=== PATIENT | female | born 2000 | race Caucasian/White ===

== ENCOUNTER 2019-04-05 17:11 | Emergency (ER) | payer OTHER, SELFPAY ==
[2019-04-05 18:41] LABS: Urine Blood NEGATIVE (NEG); Urine Glucose NEGATIVE (NEG); Urine Protein NEGATIVE (NEG); Urine Specific Gravity 1.025 (1.005-1.030); Urine pH 5.5 (5.0-7.0)
[2019-04-05] MEDS ORDERED: NA CHLORIDE 0.9% 0 ML ONE (19:34)
--- NOTE | 2019-04-05 20:29 | RAD REPORT ---
EXAM DESCRIPTION: US - Transvaginal OB - 04/05/2019 8:18 pm CLINICAL HISTORY: ABD CRAMPING, COMPARISON: <Comparisons> FINDINGS: Small cystic structure, likely an early gestational sac, is seen in the fundal endometrium with mean sac diameter 4 mm, corresponding to 5 weeks 0 days gestational age. The shape of the sac i s within normal limits for gestational age. No yolk sac or embryo yet seen. The maternal adnexa and ovaries are within normal limits. Normal Doppler blood flow was demonstrated to both ovaries. IMPRESSION: Early IUP findings are noted without embryo or yolk sac yet identified. Suggest followup pelvic sonography 10-12 days.
[2019-04-05 21:17] LABS: Absolute Lymphocytes (CBC) 2.9 K/uL (0.7-4.9); Absolute Monocytes 0.5 K/uL (0.1-1.3); Absolute Neutrophil 4.6 K/uL (1.8-8.0); Basophils % 0.9 % (0-1.3); Eosinophils % 2.3 % (0-4.4); Hematocrit 37.7 % (36.0-45.0); Lymphocytes % 34.8 % (15.3-44.8); MPV 6.9 fL (7.6-11.3); RBC Red Blood Cell Count 4.29 M/uL (3.86-4.86)
[2019-04-05 21:27] LABS: BUN Blood Urea Nitrogen 11 mg/dL (7-18); Bicarbonate 25 mmol/L (21-32); Glucose Level 104 mg/dL (74-106); Potassium 3.7 mmol/L (3.5-5.1); Sodium Level 141 mmol/L (136-145)
--- NOTE | 2019-04-05 21:56 | ER ---
Nurse's Notes [facility] Name: Mar Dominique Age: 18 yrs Sex: Female : 2000 Arrival Date: 04/05/2019 Time: 17:14 Bed 15 Private MD: Diagnosis: Threatened ; related conditions, unspecified, first trimester Presentation: 04/05 17:34 Presenting complaint: Patient states: AROUND 0300 I BLED VAGINALLY, THEN STOPPED, BUT I ch AM HAVING PAIN IN MY LOWER ABDOMEN AND PELVIS. I MIGHT BE . I HAVE A 6 MONTH OLD BABY, NOT BREAST FEEDING. VOMITING FOR 1 WEEK, HEADACHES FOR A WEEK. Transition of care: patient was not received from another setting of care. Onset of symptoms was April 05, 2019 at 03:00. Risk Assessment: Do you want to hurt yourself or someone else? Patient reports no desire to harm self or others. Initial Sepsis Screen: Does the patient meet any 2 criteria? No. Patient's initial sepsis screen is negative. Does the patient have a suspected source of infection? No. Patient's initial sepsis screen is negative. Care prior to arrival: None. 17:34 Method Of Arrival: Ambulatory 17:34 Acuity: VICKY 3 ch Triage Assessment: 17:36 General: Appears in no apparent distress. comfortable, Behavior is calm, cooperative, ch appropriate for age. Pain: Complains of pain in suprapubic area, right lower quadrant, left lower quadrant and pelvis Pain currently is 7 out of 10 on a pain scale. GI: Reports lower abdominal pain, nausea, vomiting. 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 - Social history:: Smoking status: Patient/guardian denies using tobacco, Patient/guardian denies using alcohol, street drugs. - Ebola Screening: : Patient negative for fever greater than or equal to 101.5 degrees Fahrenheit, and additional compatible Ebola Virus Disease symptoms Patient denies exposure to infectious person Patient denies travel to an Ebola-affected area in the 21 days before illness onset No symptoms or risks identified at this time. Screenin:00 Abuse screen: Denies threats or abuse. Nutritional screening: No deficits noted. jb4 Tuberculosis screening: No symptoms or risk factors identified. Fall Risk None identified. Assessment: 19:15 General: Appears in no apparent distress. uncomfortable, Behavior is calm, cooperative, jb4 appropriate for age. Pain: Complains of pain in abdomen Pain does not radiate. Pain currently is 8 out of 10 on a pain scale. Neuro: Level of Consciousness is awake, alert, obeys commands, Oriented to person, place, time, situation. Cardiovascular: Patient's skin is warm and dry. Respiratory: Airway is patent Respiratory effort is even, unlabored, Respiratory pattern is regular, symmetrical. GI: Bowel sounds present X 4 quads. Abd is soft X 4 quads Abd is non tender in right upper quadrant and left upper quadrant Abdomen is tender to palpation in suprapubic area, right lower quadrant and left lower quadrant. : No signs and/or symptoms were reported regarding the genitourinary system. EENT: No signs and/or symptoms were reported regarding the EENT system. Derm: Skin is intact, Skin is pink, warm \T\ dry. Musculoskeletal: Circulation, motion, and sensation intact. 20:00 Reassessment: Patient appears in no apparent distress at this time. Patient and/or jb4 family updated on plan of care and expected duration. Pain level reassessed. Patient is alert, oriented x 3, equal unlabored respirations, skin warm/dry/pink. Pt refused further IV attempts. 20:55 Reassessment: pt refused further blood draw attempts from Lab. jb4 21:00 Reassessment: Patient appears in no apparent distress at this time. Patient and/or jb4 family updated on plan of care and expected duration. Pain level reassessed. Patient is alert, oriented x 3, equal unlabored respirations, skin warm/dry/pink. 22:08 Reassessment: Patient appears in no apparent distress at this time. Patient is alert, jb4 oriented x 3, equal unlabored respirations, skin warm/dry/pink. Pt left ED ambulatory with friend, steady gait. Verbalized understanding of d/c and follow up instructions, denies questions or concerns at this time. Vital Signs: 17:36 BP 152 / 81; Pulse 80; Resp 16; Temp 98.6; Pulse Ox 99% on R/A; Weight 92.99 kg; Height 5 ft. 8 in. (172.72 cm); Pain 8/10; 19:45 BP 115 / 76; Pulse 80; Resp 18; Pulse Ox 100% on R/A; jb4 21:41 BP 118 / 79; Pulse 69; Resp 16; Pulse Ox 100% on R/A; jb4 17:36 Body Mass Index 31.17 (92.99 kg, 172.72 cm) ED Course: 17:14 Patient arrived in ED. rg4 17:35 Triage completed. 17:36 Arm band placed on left wrist. Patient placed in waiting room. ch 18:25 Derrek Gomez, IGNACIO is Primary Nurse. sg 18:51 Rakesh Calvillo MD is Attending Physician. shan 19:00 Patient has correct armband on for positive identification. Bed in low position. Call jb4 light in reach. Side rails up X 1. Pulse ox on. NIBP on. 19:14 Rakesh Bailey PA is PHCP. cp 20:00 Missed attempt(s): 20 gauge in right antecubital area. jb4 20:20 US Transvaginal Ob In Process Unspecified. EDMS 21:05 Initial lab(s) drawn, by me, sent to lab. Inserted saline lock: 20 gauge in right rr5 forearm, using aseptic technique. Blood collected. 21:54 Akil Monroe MD is Referral Physician. cp 21:55 Referral Physician role handed off by Akil Monroe MD cp 21:55 Akil Monroe MD is Referral Physician. cp 22:08 No provider procedures requiring assistance completed. IV discontinued, intact, jb4 bleeding controlled, No redness/swelling at site. Pressure dressing applied. Administered Medications: 19:30 Not Given (Patient Refused): NS 0.9% 1000 ml IV at 1 bolus Per protocol; 1000 mL bolus jb4 Outcome: 21:55 Discharge ordered by . cp 22:10 Discharged to home ambulatory, with friend. jb4 22:10 Condition: stable 22:10 Discharge instructions given to patient, friend, Instructed on discharge instructions, follow up and referral plans. medication usage, Demonstrated understanding of instructions, follow-up care, medications, Prescriptions given X 2. 22:10 Patient left the ED. jb4 Signatures: Dispatcher [employer] EDMS Umu Alba, RN RN Derrek Brink RN Rakesh Martinez MD MD cha Page, Corey, PA Jessica Gould cp rg4 Giuliano Mallory RN RN jb4 Sheng Resendiz RN RN rr5 Corrections: (The following items were deleted from the chart) 22:10 22:08 Reassessment: Patient appears in no apparent distress at this time. Patient is jb4 alert, oriented x 3, equal unlabored respirations, skin warm/dry/pink. Pt left ED ambulatory with friend, steady gait. jb4
--- NOTE | 2019-04-05 21:56 | EDPHYS ---
Physician Documentation [facility] Name: Mar Dominique Age: 18 yrs Sex: Female : 2000 Arrival Date: 04/05/2019 Time: 17:14 Bed 15 Private MD: ED Physician Rakesh Calvillo HPI: 04/05 18:55 This 18 yrs old Female presents to ER via Ambulatory with complaints of shan Abdominal Cramping. 18:55 The patient presents to the emergency department with abdominal pain, of the suprapubic shan area, right lower quadrant and left lower quadrant, vaginal bleeding. The estimated gestational age is 4 weeks. course: care: none. Previous pregnancies: in previous pregnancies patient has had vaginal delivery. 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 - Social history:: Smoking status: Patient/guardian denies using tobacco, Patient/guardian denies using alcohol, street drugs. - Ebola Screening: : Patient negative for fever greater than or equal to 101.5 degrees Fahrenheit, and additional compatible Ebola Virus Disease symptoms Patient denies exposure to infectious person Patient denies travel to an Ebola-affected area in the 21 days before illness onset No symptoms or risks identified at this time. ROS: 18:56 Constitutional: Negative for fever, chills, and weight loss, Eyes: Negative for injury, shan pain, redness, and discharge, ENT: Negative for injury, pain, and discharge, Neck: Negative for injury, pain, and swelling, Cardiovascular: Negative for chest pain, palpitations, and edema, Respiratory: Negative for shortness of breath, cough, wheezing, and pleuritic chest pain, Back: Negative for injury and pain, : Negative for injury, bleeding, discharge, and swelling, MS/Extremity: Negative for injury and deformity, Skin: Negative for injury, rash, and discoloration, Neuro: Negative for headache, weakness, numbness, tingling, and seizure, Psych: Negative for depression, anxiety, suicide ideation, homicidal ideation, and hallucinations, Allergy/Immunology: Negative for hives, rash, and allergies, Endocrine: Negative for neck swelling, polydipsia, polyuria, polyphagia, and marked weight changes, Hematologic/Lymphatic: Negative for swollen nodes, abnormal bleeding, and unusual bruising. 18:56 Abdomen/GI: Positive for abdominal pain, abdominal cramps, of the suprapubic area, right lower quadrant and left lower quadrant. Exam: 18:56 Constitutional: This is a well developed, well nourished patient who is awake, alert, shan and in no acute distress. Head/Face: Normocephalic, atraumatic. Eyes: Pupils equal round and reactive to light, extra-ocular motions intact. Lids and lashes normal. Conjunctiva and sclera are non-icteric and not injected. Cornea within normal limits. Periorbital areas with no swelling, redness, or edema. ENT: Nares patent. No nasal discharge, no septal abnormalities noted. Tympanic membranes are normal and external auditory canals are clear. Oropharynx with no redness, swelling, or masses, exudates, or evidence of obstruction, uvula midline. Mucous membranes moist. Neck: Trachea midline, no thyromegaly or masses palpated, and no cervical lymphadenopathy. Supple, full range of motion without nuchal rigidity, or vertebral point tenderness. No Meningismus. Chest/axilla: Normal chest wall appearance and motion. Nontender with no deformity. No lesions are appreciated. Cardiovascular: Regular rate and rhythm with a normal S1 and S2. No gallops, murmurs, or rubs. Normal PMI, no JVD. No pulse deficits. Respiratory: Lungs have equal breath sounds bilaterally, clear to auscultation and percussion. No rales, rhonchi or wheezes noted. No increased work of breathing, no retractions or nasal flaring. Back: No spinal tenderness. No costovertebral tenderness. Full range of motion. Female : Normal external genitalia. Skin: Warm, dry with normal turgor. Normal color with no rashes, no lesions, and no evidence of cellulitis. MS/ Extremity: Pulses equal, no cyanosis. Neurovascular intact. Full, normal range of motion. Neuro: Awake and alert, GCS 15, oriented to person, place, time, and situation. Cranial nerves II-XII grossly intact. Motor strength 5/5 in all extremities. Sensory grossly intact. Cerebellar exam normal. Normal gait. Psych: Awake, alert, with orientation to person, place and time. Behavior, mood, and affect are within normal limits. 18:56 Abdomen/GI: Inspection: abdomen appears normal, Bowel sounds: normal, Liver: no appreciated palpable abnormalities, Hernia: not appreciated. Vital Signs: 17:36 BP 152 / 81; Pulse 80; Resp 16; Temp 98.6; Pulse Ox 99% on R/A; Weight 92.99 kg; Height ch 5 ft. 8 in. (172.72 cm); Pain 8/10; 19:45 BP 115 / 76; Pulse 80; Resp 18; Pulse Ox 100% on R/A; jb4 21:41 BP 118 / 79; Pulse 69; Resp 16; Pulse Ox 100% on R/A; jb4 17:36 Body Mass Index 31.17 (92.99 kg, 172.72 cm) [facility]: 18:51 Patient medically screened. [facility] 18:57 Data reviewed: vital signs, nurses notes, lab test result(s), radiologic studies, [facility] ultrasound. 04/05 18:28 Order name: Urine Dipstick--Ancillary (enter results); Complete Time: 18:51 ms 04/05 18:28 Order name: Urine --Ancillary (enter results); Complete Time: 18:51 ia 04/05 21:45 Interpretation: Reviewed. 04/05 18:55 Order name: Abo/rh Typing; Complete Time: 21:54 [facility] 04/05 21:54 Interpretation: Reviewed. 04/05 18:55 Order name: Basic Metabolic Panel; Complete Time: 21:44 [facility] 04/05 21:44 Interpretation: Normal except: CL 109. 04/05 18:55 Order name: CBC with Diff; Complete Time: 21:44 [facility] 04/05 21:44 Interpretation: Normal except: MPV 6.9. 04/05 19:57 Order name: Quantitative Hcg; Complete Time: 21:54 04/05 21:54 Interpretation: Abnormal: HCGQ 1785. 04/05 18:55 Order name: Labs collected and sent; Complete Time: 19:30 [facility] 04/05 18:55 Order name: NPO; Complete Time: 19:30 [facility] 04/05 18:55 Order name: Urine Dipstick-Ancillary (obtain specimen); Complete Time: 19:30 [facility] 04/05 18:55 Order name: US Transvaginal Ob; Complete Time: 20:33 [facility] Administered Medications: 19:30 Not Given (Patient Refused): NS 0.9% 1000 ml IV at 1 bolus Per protocol; 1000 mL bolus jb4 Disposition: 04/05/19 21:55 Discharged to Home. Impression: Threatened , related conditions, unspecified, first trimester. - Condition is Stable. - Discharge Instructions: Threatened Miscarriage, Vaginal Bleeding During , First Trimester, First Trimester of , [id number], First Trimester of , Threatened Miscarriage, [id number], Pelvic Rest. - Prescriptions for Vitamin 27- 0.8 mg Oral Tablet - take 1 tablet by ORAL route once daily; 30 tablet. Diclegis 10- 10 mg Oral tablet,delayed release (DR/EC) - take 1 tablet by ORAL route 3 times per day and 2 tablets at bedtime; 60 tablet. - Medication Reconciliation Form, Thank You Letter, Antibiotic Education, Prescription Opioid Use form. - Follow up: Akil Monroe; When: 2 - 3 days; Reason: Recheck today's complaints, Re-evaluation by your physician. Follow up: Akil Monroe MD; When: 48 Hours; Reason: Repeat Beta-HCG (48 Hours). Follow up: Private Physician; When: 48 Hours; Reason: Repeat Beta-HCG (48 Hours). - Problem is new. - Symptoms have improved. Signatures: Dispatcher [employer] Umu Grier, RN RN Rakesh Timmons MD MD cha Page, Corey, PA PA cp Bryson, James, RN RN jb4 Corrections: (The following items were deleted from the chart) 19:30 18:55 IV Saline Lock ordered. [facility] jb4 22:10 21:55 04/05/2019 21:55 Discharged to Home. Impression: Threatened ; jb4 related conditions, unspecified, first trimester. Condition is Stable. Discharge Instructions: Threatened Miscarriage, Vaginal Bleeding During , First Trimester, First Trimester of , [id number], First Trimester of , Threatened Miscarriage, [id number], Pelvic Rest. Prescriptions for Vitamin 27-0.8 mg Oral Tablet - take 1 tablet by ORAL route once daily; 30 tablet, Diclegis 10-10 mg Oral tablet,delayed release (DR/EC) - take 1 tablet by ORAL route 3 times per day and 2 tablets at bedtime; 60 tablet. and Forms are Medication Reconciliation Form, Thank You Letter, Antibiotic Education, Prescription Opioid Use. Follow up: Akil Monroe; When: 48 Hours; Reason: Repeat Beta-HCG (48 Hours). Follow up: Private Physician; When: 48 Hours; Reason: Repeat Beta-HCG (48 Hours). Problem is new. Symptoms have improved. cp
== END 2019-04-05 22:10 | disposition home or self-care (01) ==
LOC: ER 17:11
DX: O20.0 Threatened abortion (principal); Z3A.01 Less than 8 weeks gestation of pregnancy
CPT/HCPCS: 36415; 76817; 80048; 81003; 81025; 84702; 85025; 86900; 86901; 99284; J7030

== ENCOUNTER 2019-04-07 20:06 | Emergency (ER) | payer SELFPAY ==
--- OUTSIDE RECORDS SUMMARY | 2019-04-07 20:11 | XMS REPORT | Continuity of Care Document ---
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 Hg) 119 02/22/2018 [facility] Diastolic (mm Hg) 76 02/22/2018 [facility] Respitory Rate 18 02/22/2018 [facility] Heart Rate 66 02/22/2018 [facility] Systolic (mm Hg) 113 02/22/2018 [facility] Diastolic (mm Hg) 74 02/22/2018 [facility] Weight 93.182 02/22/2018 [facility] Height 170.18 cm 02/22/2018 [facility] BMI Calculated 32.17 02/22/2018 [facility] Heart Rate 80 01/25/2018 [facility] Respitory Rate 17 01/25/2018 [facility] Systolic (mm Hg) 126 01/25/2018 [facility] Diastolic (mm Hg) 78 01/25/2018 [facility] Heart Rate 88 01/25/2018 [facility] Respitory Rate 18 01/25/2018 [facility] Systolic (mm Hg) 123 01/25/2018 [facility] Diastolic (mm Hg) 100 01/25/2018 [facility] Systolic (mm Hg) 113 01/25/2018 [facility] Diastolic (mm Hg) 67 01/25/2018 [facility] Weight 92.727 01/25/2018 [facility] BMI Calculated 32.02 01/25/2018 [facility] Height 170.18 cm 01/25/2018 [facility] Temperature Oral (F) 98.3 F 01/25/2018 [facility] Heart Rate 77 01/25/2018 [facility] Respitory Rate 17 01/25/2018 [facility] Systolic (mm Hg) 115 12/31/2017 [facility] Diastolic (mm Hg) 76 12/31/2017 [facility] Respitory Rate 18 12/31/2017 [facility] Heart Rate 89 12/31/2017 [facility] Systolic (mm Hg) 116 12/31/2017 [facility] Diastolic (mm Hg) 79 12/31/2017 [facility] Respitory Rate 19 12/31/2017 [facility] Heart Rate 98 12/31/2017 [facility] BMI Calculated 32.96 12/31/2017 [facility] Weight 95.455 12/31/2017 [facility] Respitory Rate 17 12/31/2017 [facility] Heart Rate 101 12/31/2017 [facility] Systolic (mm Hg) 142 12/31/2017 [facility] Diastolic (mm Hg) 68 12/31/2017 [facility] Height 170.18 cm 12/31/2017 [facility] Temperature Oral (F) 98.3 F 12/31/2017 [facility] Weight 81.818 04/08/2017 [facility] BMI Calculated 28.25 04/08/2017 [facility] Temperature Oral (F) 98.2 F 04/08/2017 [facility] Respitory Rate 16 04/08/2017 [facility] Height 170.18 cm 04/08/2017 [facility] Systolic (mm Hg) 112 04/08/2017 [facility] Diastolic (mm Hg) 70 04/08/2017 [facility] Heart Rate 97 04/08/2017 [facility] Respitory Rate 18 04/09/2016 [facility] BMI Calculated 25.56 04/09/2016 [facility] Height 167.64 cm 04/09/2016 [facility] Weight 71.818 04/09/2016 [facility] Temperature Oral (F) 98.0 F 04/09/2016 [facility] Heart Rate 88 04/09/2016 [facility] Systolic (mm Hg) 111 04/09/2016 [facility] Diastolic (mm Hg) 75 04/09/2016 [facility] Encounters Location Location Encounter Encounter Reason Attending ADM DC Status Source Details Type Number For Provider Date Date Visit [facility] [id number] Christopher 04/09 04/09 Rob Emergency [place] /2015 [facility] [id number] [place] 04/08 04/08 Rob Diamond /2016 [facility] [id number] Ejieroghene 12/31 12/31 Rob Brown [facility] [id number] Andrew Narayanan 01/25 01/25 Rob [facility] [id number] Seamus Payan 02/22 02/22 Rob /2017 [facility] [id number] Danyricky Jacobs 05/09 05/10 Rob [facility] [id number] Juan J 08/28 08/28 Rob Davila [facility] Procedures Procedure Code Date Perfomer Comments Source Cholecystectomy [id number] [facility] Cholecystectomy [id number] [facility]
--- OUTSIDE RECORDS SUMMARY | 2019-04-07 20:12 | XMS REPORT | Summary of Care ---
:2000 Author Organization [facility] Address [address] [place] [address]- Encounter [facility] Yeu(MIGEL) [id number] Date(s): 01/25/18 - 01/25/[address] [address]- Encounter Diagnosis PID (acute pelvic inflammatory disease) (Discharge Diagnosis) - 01/25/18 Acute parametritis and pelvic cellulitis (Final) - 02/01/18 Discharge Disposition: Home or Self Care Attending Physician: Andrew Narayanan MD Vital Signs Most recent to oldest 1 2 3 [Reference Range]: Height 170.18 cm (01/25/18 10:27 AM) Temperature Oral [96.4-99.1 98.3 DegF DegF] (01/25/18 10:27 AM) Blood Pressure [90-140/60-90 126/78 mmHg 123/100 mmHg 113/67 mmHg mmHg] (01/25/18 1:00 PM) (01/25/18 11:50 AM) (01/25/18 10:27 AM) Respiratory Rate [14-20 BRMIN] 17 BRMIN 18 BRMIN 17 BRMIN (01/25/18 1:00 PM) (01/25/18 11:50 AM) (01/25/18 10:27 AM) Peripheral Pulse Rate [60-100 80 bpm 88 bpm 77 bpm bpm] (01/25/18 1:00 PM) (01/25/18 11:50 AM) (01/25/18 10:27 AM) Weight 92.727 kg (01/25/18 10:27 AM) Body Mass Index 32.02 m2 (01/25/18 10:27 AM) Problem List No data available for this section Allergies, Adverse Reactions, Alerts Substance Reaction Severity Status NKDA Active Medications azithromycin 250 mg oral tablet 1,000 mg, 4 tab, Route: PO, Drug form: TAB, ONCE, Dosing Weight 92.727, kg, Priority: STAT, Start date: 01/25/18 11:02:00 CDT, Stop date: 01/25/18 11:02:00 CDT, ABX Indication: Genital Tract Infection Notes: Take 1 hour before or 2 hours after meals.(Same As: Zithromax) Start Date: 01/25/18 Stop Date: 01/25/18 Status: Completeddoxycycline hyclate 100 mg oral tablet 100 mg=1 tab, PO, Q12H, X 14 day, # 28 tab, 0 Refill(s) Start Date: 01/25/18 Stop Date: 02/08/18 Status: CompletedmetroNIDAZOLE 2 gm, Route: PO, ONCE, Dosing Weight 92.727, kg, Priority: STAT, Start date: 02/08 11:02:00 CDT, Stop date: 01/25/18 11:02:00 CDT, ABX Indication: Genital Tract Infection Start Date: 01/25/18 Stop Date: 01/25/18 Status: Completedondansetron 4 mg, Route: PO, Drug form: TABDIS, ONCE, Dosing Weight 92.727, kg, Priority: STAT, Start date: 01/25/18 11:02:00 CDT, Stop date: 01/25/18 11:02:00 CDT Start Date: 01/25/18 Stop Date: 01/25/18 Status: CompletedRocephin 250 mg, Route: IM, Drug form: PDR/INJ, ONCE, Dosing Weight 92.727, kg, Priority : STAT, Start date: 01/25/18 11:02:00 CDT, Stop date: 01/25/18 11:02:00 CDT, ABX Indication: Genital Tract Infection Start Date: 01/25/18 Stop Date: 01/25/18 Status: Completed Results URINE CHEM Most recent to oldest [Reference Range]: 1 U Preg [Negative] Negative (01/25/18 10:48 AM) URINE AND STOOL Most recent to oldest [Reference Range]: 1 UA Turbidity [Clear] Slight *ABN* (01/25/18 10:48 AM) UA Color [Yellow] Light Yellow *NA* (01/25/18 10:48 AM) UA pH [5.0-8.0] 6.0 (01/25/18 10:48 AM) UA Spec Grav [<=1.030] 1.014 (01/25/18 10:48 AM) UA Glucose [Negative mg/dL] Negative mg/dL *NA* (01/25/18 10:48 AM) UA Blood [Negative] Negative (01/25/18 10:48 AM) UA Ketones Negative *NA* (01/25/18 10:48 AM) UA Protein [Negative mg/dL] Negative mg/dL (01/25/18 10:48 AM) UA Urobilinogen [0.1-1.0 mg/dL] <=1.0 mg/dL *NA* (01/25/18 10:48 AM) UA Bili [Negative] Negative *NA* (01/25/18 10:48 AM) UA Leuk Est [Negative] Small *ABN* (01/25/18 10:48 AM) UA Nitrite [Negative] Negative (01/25/18 10:48 AM) UA WBC [0-5 /HPF] 4 /HPF (01/25/18 10:48 AM) UA RBC [0-2 /HPF] 3 /HPF *HI* (01/25/18 10:48 AM) UA Sq Epi [Few /LPF] Moderate /LPF *ABN* (01/25/18 10:48 AM) UA Mucus [None Seen /LPF] Few /LPF *NA* (01/25/18 10:48 AM) MOLECULAR DIAGNOSTIC Most recent to oldest [Reference Range]: 1 Source [facility] Urine *NA* (01/25/18 10:48 AM) N gonorrhea by Amp Det ([facility]) [Negative] Negative *NA* (01/25/18 10:48 AM) C trachomatis by Amp Det ([facility]) [Negative] Negative *NA* (01/25/18 10:48 AM) Immunizations No data available for this section Procedures Procedure Date Related Diagnosis Body Site Status Cholecystectomy Completed Social History Social History Type Response Substance Abuse Use: Past. Type: Marijuana. Smoking Status Never smoker; Exposure to Tobacco Smoke None; Cigarette Smoking Last 365 Days No; Reg Smoking Cessation Counseling No entered on: 02/22/18 Assessment and Plan No data available for this section
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
--- OUTSIDE RECORDS SUMMARY | 2019-04-07 20:12 | XMS REPORT | Summary of Care ---
:2000 Author Organization [facility] Address [address] [place] [address]- Encounter HQ Encntr_sravan(FIN) [id number] Date(s): 04/08/17 - 04/08/17 [facility] [address] [place] [phone]- [phone] Discharge Disposition: Elopement Attending Physician: Trenton Diamond MD Vital Signs Most recent to oldest [Reference Range]: 1 Height 170.18 cm (04/08/17 4:51 PM) Temperature Oral [96.8-99.7 DegF] 98.2 DegF (04/08/17 4:51 PM) Blood Pressure [90-138/45-84 mmHg] 112/70 mmHg (04/08/17 4:51 PM) Respiratory Rate [14-20 BRMIN] 16 BRMIN (04/08/17 4:51 PM) Peripheral Pulse Rate [55-90 bpm] 97 bpm *HI* (04/08/17 4:51 PM) Weight 81.818 kg (04/08/17 4:51 PM) Body Mass Index 28.25 m2 (04/08/17 4:51 PM) Problem List No data available for this section Allergies, Adverse Reactions, Alerts Substance Reaction Severity Status NKDA Active Medications No data available for this section Results No data available for this section Immunizations No data available for this section Procedures Procedure Date Related Diagnosis Body Site Cholecystectomy Social History Social History Type Response Smoking Status Never smoker; Exposure to Tobacco Smoke None; Cigarette Smoking Last 365 Days No; Reg Smoking Cessation Counseling No Assessment and Plan No data available for this section
--- OUTSIDE RECORDS SUMMARY | 2019-04-07 20:12 | XMS REPORT | Summary of Care ---
:2000 Author Organization [facility] Address [address] [place] [address]- Encounter HQ Yue(FIN) [id number] Date(s): 08/28/18 - 08/28/[address] [address]- Encounter Diagnosis IUGR (intrauterine growth restriction) affecting care of mother (Discharge Diagnosis) - 08/28/18 Maternal care for other known or suspected poor growth, third trimester, not applicable or unspecified (Final) - 09/01/18 34 weeks gestation of (Final) - Discharge Disposition: Home or Self Care Attending Physician: Juan J Davila MD Vital Signs Most recent to oldest [Reference Range]: 1 Height 170.18 cm (08/28/18 4:38 PM) Temperature Oral [96.4-99.1 DegF] 99.2 DegF *HI* (08/28/18 4:38 PM) Blood Pressure [90-140/60-90 mmHg] 109/75 mmHg (08/28/18 4:38 PM) Respiratory Rate [14-20 BRMIN] 18 BRMIN (08/28/18 4:38 PM) Peripheral Pulse Rate [60-100 bpm] 94 bpm (08/28/18 4:38 PM) Weight 102.455 kg (08/28/18 4:38 PM) Body Mass Index 35.38 m2 (08/28/18 4:38 PM) Problem List Condition Effective Dates Status Health Status Informant Anemia affecting Resolved (Confirmed) (Confirmed) 09/19/18 Active Allergies, Adverse Reactions, Alerts No Known Medication Allergies Substance Reaction Severity Status Other Food Allergy1, 2 Active Bee Sting3 Active 1reaction : anaphylactic [id number] to bees-anaphylactic shock Medications No data available for this section Results Most recent to oldest [Reference Range]: 1 UA Bacteria [None Seen /HPF] Few /HPF *NA* (08/28/18 4:29 PM) UA Bili [Negative] Negative *NA* (08/28/18 4:29 PM) UA Blood [Negative] Negative (08/28/18 4:29 PM) UA CaOx Aysha [None Seen /HPF] Occasional /HPF *NA* (08/28/18 4:29 PM) UA Color [Yellow] Yellow *NA* (08/28/18 4:29 PM) UA Glucose [Negative] Negative *NA* (08/28/18 4:29 PM) UA Ketones Negative *NA* (08/28/18 4:29 PM) UA Leuk Est [Negative] Trace *ABN* (08/28/18 4:29 PM) UA Mucus [None Seen /LPF] Few /LPF *NA* (08/28/18 4:29 PM) UA Nitrite [Negative] Negative (08/28/18 4:29 PM) UA pH [5.0-8.0] 6.0 (08/28/18 4:29 PM) UA Protein [Negative] Negative (08/28/18 4:29 PM) UA RBC [0-2 /HPF] 1 /HPF (08/28/18 4:29 PM) UA Spec Grav [<=1.030] 1.011 (08/28/18 4:29 PM) UA Sq Epi [Few /LPF] Moderate /LPF *ABN* (08/28/18 4:29 PM) UA Turbidity [Clear] Slight *ABN* (08/28/18 4:29 PM) UA Urobilinogen [0.1-1.0 mg/dL] <=1.0 mg/dL *NA* (08/28/18 4:29 PM) UA WBC [0-5 /HPF] 5 /HPF (08/28/18 4:29 PM) Immunizations Given and Recorded Vaccine Date [...]
--- OUTSIDE RECORDS SUMMARY | 2019-04-07 20:12 | XMS REPORT | Summary of Care ---
:2000 Author Organization [facility] Address [address] [place] [address]- Encounter HQ Yue(MIGEL) [id number] Date(s): 02/22/18 - 02/22/[address] [address]- Encounter Diagnosis Threatened miscarriage (Discharge Diagnosis) - 02/22/18 Subchorionic hemorrhage (Discharge Diagnosis) - 02/22/18 Threatened (Final) - Less than 8 weeks gestation of (Final) - Discharge Disposition: Home or Self Care Attending Physician: Seamus Payan MD Vital Signs Most recent to oldest [Reference 1 2 3 Range]: Height 170.18 cm (02/22/18 12:52 PM) Blood Pressure [90-140/60-90 111/67 mmHg 119/76 mmHg 113/74 mmHg mmHg] (02/22/18 6:13 PM) (02/22/18 3:22 PM) (02/22/18 1:54 PM) Respiratory Rate [14-20 BRMIN] 17 BRMIN 16 BRMIN 18 BRMIN (02/22/18 6:13 PM) (02/22/18 3:22 PM) (02/22/18 1:54 PM) Peripheral Pulse Rate [60-100 79 bpm 70 bpm 66 bpm bpm] (02/22/18 6:13 PM) (02/22/18 3:22 PM) (02/22/18 1:54 PM) Weight 93.182 kg (02/22/18 12:52 PM) Body Mass Index 32.17 m2 (02/22/18 12:52 PM) Problem List No data available for this section Allergies, Adverse Reactions, Alerts Substance Reaction Severity Status NKDA Active Medications morphine Sulfate 4 mg, 1 mL, Route: IVP, Drug form: SOLN, ONCE, Dosing Weight 93.182, kg, Priority: STAT, Start date:02/22/18 13:23:00 CDT, Stop date: 02/22/18 13:23:00 CDT Notes: (Same as:MORPhine Sulfate) Start Date: 02/22/18 Stop Date: 02/22/18 Status: Completedondansetron 4 mg oral tablet, disintegrating 4 mg, 1 tab, Route: PO, Drug form: TABDIS, ONCE, Dosing Weight 93.182, kg, Priority: STAT, Start date: 02/22/18 13:24:00 CDT, Stop date: 02/22/18 13:24:00 CDT Notes: (Same as: Zofran ODT) Start Date: 02/22/18 Stop Date: 02/22/18 Status: CompletedSaline Flush 0.9% 10 mL, Route: IVP, Drug Form: INJ, Dosing Weight 93.182, kg, PRN, PRN Line Flush , Start date: 02/22/18 12:56:00 CDT, Duration: 30 day, Stop date: 03/24/18 12:55 :00 CDT Notes: (Same as: BD Posiflush) Start Date: 02/22/18 Stop Date: 02/22/18 Status: Discontinued Results BLOOD BANK RESULTS Most recent to oldest [Reference Range]: 1 ABO/Rh A POS *Unknown* (02/22/18 3:27 PM) ELECTROLYTES Most recent to oldest [Reference Range]: 1 Sodium Lvl [135-145 mEq/L] 143 mEq/L (02/22/18 1:15 PM) Potassium Lvl [3.5-5.1 mEq/L] 3.9 mEq/L (02/22/18 1:15 PM) Chloride Lvl [95-109 mEq/L] 110 mEq/L *HI* (02/22/18 1:15 PM) CO2 [24-32 mEq/L] 24 mEq/L (02/22/18 1:15 PM) AGAP [10.0-20.0 mEq/L] 12.9 mEq/L (02/22/18 1:15 PM) CHEM PANEL Most recent to oldest [Reference Range]: 1 Creatinine Lvl [0.50-1.40 mg/dL] 0.71 mg/dL (02/22/18 1:15 PM) eGFR 125 mL/min/1.73m2 1 *NA* (02/22/18 1:15 PM) BUN [7-22 mg/dL] 7 mg/dL (02/22/18 1:15 PM) Glucose Lvl [70-99 mg/dL] 87 mg/dL (02/22/18 1:15 PM) Calcium Lvl [8.5-10.5 mg/dL] 9.2 mg/dL (02/22/18 1:15 PM) 1Result Comment: The eGFR is calculated [...] to oldest [Reference Range]: 1 [place] [address] mIU/mL *NA* (02/22/18 3:27 PM) URINE CHEM Most recent to oldest [Reference Range]: 1 U Preg [Negative] Positive *ABN* (02/22/18 1:29 PM) URINE AND STOOL Most recent to oldest [Reference Range]: 1 UA Turbidity [Clear] Clear (02/22/18 1:29 PM) UA Color [Yellow] Light Yellow *NA* (02/22/18 1:29 PM) UA pH [5.0-8.0] 5.0 (02/22/18 1:29 PM) UA Spec Grav [<=1.030] 1.015 (02/22/18 1:29 PM) UA Glucose [Negative mg/dL] Negative mg/dL *NA* (02/22/18 1:29 PM) UA Blood [Negative] Negative (02/22/18 1:29 PM) UA Ketones Negative *NA* (02/22/18 1:29 PM) UA Protein [Negative mg/dL] Negative mg/dL (02/22/18 1:29 PM) UA Urobilinogen [0.1-1.0 mg/dL] <=1.0 mg/dL *NA* (02/22/18 1:29 PM) UA Bili [Negative] Negative *NA* (02/22/18 1:29 PM) UA Leuk Est [Negative] Negative (02/22/18 1:29 PM) UA Nitrite [Negative] Negative (02/22/18 1:29 PM) UA WBC [0-5 /HPF] 1 /HPF (02/22/18 1:29 PM) UA RBC [0-2 /HPF] <1 /HPF (02/22/18 1:29 PM) UA Sq Epi [Few /LPF] Few /LPF *NA* (02/22/18 1:29 PM) HEMATOLOGY Most recent to oldest [Reference Range]: 1 WBC [3.7-10.4 K/CMM] 6.7 K/CMM (02/22/18 1:15 PM) RBC [4.20-5.40 M/CMM] 4.30 M/CMM (02/22/18 1:15 PM) Hgb [12.0-16.0 g/dL] 12.6 g/dL (02/22/18 1:15 PM) Hct [36.0-48.0 %] 37.1 % (02/22/18 1:15 PM) MCV [80.0-98.0 fL] 86.2 fL (02/22/18 1:15 PM) MCH [27.0-31.0 pg] 29.3 pg (02/22/18 1:15 PM) MCHC [32.0-36.0 g/dL] 33.9 g/dL (02/22/18 1:15 PM) RDW [11.5-14.5 %] 13.6 % (02/22/18 1:15 PM) MPV [7.4-10.4 fL] 6.9 fL *LOW* (02/22/18 1:15 PM) Platelet [133-450 K/CMM] 322 K/CMM (02/22/18 1:15 PM) Segs [45.0-75.0 %] 58.2 % (02/22/18 1:15 PM) Lymphocytes [20.0-40.0 %] 33.8 % (02/22/18 1:15 PM) Monocytes [2.0-12.0 %] 6.3 % (02/22/18 1:15 PM) Eosinophils [0.0-4.0 %] 1.2 % (02/22/18 1:15 PM) Basophils [0.0-1.0 %] 0.5 % (02/22/18 1:15 PM) Segs-Bands # [1.5-8.1 K/CMM] 3.9 K/CMM (02/22/18 1:15 PM) Lymphocytes # [1.0-5.5 K/CMM] 2.3 K/CMM (02/22/18 1:15 PM) Monocytes # [0.0-0.8 K/CMM] 0.4 K/CMM (02/22/18 1:15 PM) Eosinophils # [0.0-0.5 K/CMM] 0.1 K/CMM (02/22/18 1:15 PM) MOLECULAR DIAGNOSTIC Most recent to oldest [Reference Range]: 1 Source APTIMA Endocervix *NA* (02/22/18 3:27 PM) N gonorrhea by Amp Det (APTIMA) [Negative] Negative *NA* (02/22/18 3:27 PM) C trachomatis by Amp Det (APTIMA) [Negative] Negative *NA* (02/22/18 3:27 PM) Immunizations No data available for this [...]
--- OUTSIDE RECORDS SUMMARY | 2019-04-07 20:12 | XMS REPORT | Summary of Care ---
:2000 Author Organization [facility] Address [address] [place] [address]- Encounter HQ Yue(FIN) [id number] Date(s): 02/22/18 - 02/22/[address] [address]- Encounter Diagnosis Threatened miscarriage (Discharge Diagnosis) - 02/22/18 Subchorionic hemorrhage (Discharge Diagnosis) - 02/22/18 Discharge Disposition: Home or Self Care Attending [...] to oldest [Reference Range]: 1 [place] [address] mIU/mL *NA* (02/22/18 3:27 PM) URINE CHEM [...]
--- OUTSIDE RECORDS SUMMARY | 2019-04-07 20:13 | XMS REPORT ---
:2000 Author Organization [employer] Care Team Providers Name Role Phone Valerie Bone Provider Role Unavailable Allergies No Known Allergies Problems Problem Type Condition Code Onset Dates Condition Status Problem Encounter for supervision of normal Z34.00 Active first Problem Obesity affecting , second O99.212 Active trimester Medications No Known Medications Results No Known Results Summary Purpose [employer] Submission
--- OUTSIDE RECORDS SUMMARY | 2019-04-07 20:13 | XMS REPORT ---
:2000 Author Organization [facility] Address [address] [place] [address] Care Team Providers Name Role Phone Unavailable Unavailable Unavailable Payers Payer Name Policy Type Policy Number Effective Date Expiration Date Problems This patient has no known problems. Allergies, Adverse Reactions, Alerts Allergy Allergy Status Severity Reaction(s) Onset Inactive Treating Comments Name Type Date Date Clinician bee pollen DA Active MO 2018-06 00:00:0 0 bee pollen DA Active MO 2018-06 00:00:0 0 WASP DA Active MO 2018-06 00:00:0 0 No Known DA Active U 2014-01 00:00:0 0 Medications This patient has no known medications.
--- OUTSIDE RECORDS SUMMARY | 2019-04-07 20:13 | XMS REPORT ---
:2000 Author Organization [employer] Care Team Providers Name Role Phone Valerie Bone Provider Role Unavailable Allergies No Known Allergies Problems Problem Type Condition Code Onset Dates Condition Status Problem Encounter for supervision of normal Z34.00 Active first Problem Obesity affecting , second O99.212 Active trimester Medications Medication Code Code Instructions Start End Date Status Dosage System Date Ferrous [facility] [id number] 325 (65 Fe) MG Aug 02, Active 1 tablet Sulfate Orally Once a 2017 Results No Known Results Summary Purpose [employer] Submission
--- OUTSIDE RECORDS SUMMARY | 2019-04-07 20:13 | XMS REPORT ---
:2000 Author Organization [employer] Care Team Providers Name Role Phone Valerie Bone Provider Role Unavailable Allergies No Known Allergies Problems Problem Type Condition Code Onset Dates Condition Status Problem Encounter for supervision of normal Z34.00 Active first Problem Obesity affecting , second O99.212 Active trimester Medications Medication Code Code Instructions Start End Status Dosage System Date Date CitraNatal [facility] [id number] 35-1 & 300 MG May 04, Active as directed Assure Orally daily 2017 Results No Known Results Summary Purpose [employer] Submission
--- OUTSIDE RECORDS SUMMARY | 2019-04-07 20:13 | XMS REPORT ---
:2000 Author Organization [employer] Care Team Providers Name Role Phone Valerie Bone Provider Role Unavailable Allergies No Known Allergies Problems Problem Type Condition Code Onset Dates Condition Status Problem Encounter for supervision of normal Z34.00 Active first Assessment Supervision of normal first teen Z34.01 Active , first trimester Problem Obesity affecting , second O99.212 Active trimester Medications Medication Code System Code Instructions Start End Date Status Dosage Date CitraNatal [facility] [id number] 35-1 and 300 MG April 04, 1 Assure Orally Once a 2017 day Results No Known Results Summary Purpose [employer] Submission
--- OUTSIDE RECORDS SUMMARY | 2019-04-07 20:13 | XMS REPORT | Summary of Care ---
:2000 Author Organization [facility] Address [address] [place] [address]- Encounter HQ Mikaylantr_sravan(FIN) [id number] Date(s): 04/09/16 - 04/09/16 [facility] [address] [place] [phone] Discharge Disposition: Non-Emergent Attending Physician: Bryant Bonilla MD Vital Signs Most recent to oldest [Reference Range]: 1 Height 167.64 cm (04/09/16 2:32 PM) Temperature Oral [96.8-99.7 DegF] 98.0 DegF (04/09/16 2:32 PM) Blood Pressure [90-138/45-84 mmHg] 111/75 mmHg (04/09/16 2:32 PM) Respiratory Rate [14-20 BRMIN] 18 BRMIN (04/09/16 2:32 PM) Peripheral Pulse Rate [55-90 bpm] 88 bpm (04/09/16 2:32 PM) Weight 71.818 kg (04/09/16 2:32 PM) Body Mass Index 25.56 m2 (04/09/16 2:32 PM) Problem List No data available for [...]
--- NOTE | 2019-04-07 21:54 | EDPHYS ---
Physician Documentation [facility] Name: Mar Dominique Age: 18 yrs Sex: Female : 2000 Arrival Date: 04/07/2019 Time: 20:09 Bed 23 Private MD: ED Physician Rakesh Calvillo HPI: 04/07 20:42 This 18 yrs old Female presents to ER via Ambulatory with complaints of Check snw hcg levels. 20:42 Onset: The symptoms/episode began/occurred acutely. Associated signs and symptoms: The snw patient has no apparent associated signs or symptoms. Modifying factors: The patient symptoms are alleviated by nothing, the patient symptoms are aggravated by nothing. pt was evaluated 04/08/19 for early . HCG level done and pt told to return to ED for repeat level.. as noted, no OB yet, pt was told she was 5 wks 2 days ago and she was to return for repeat HCG level. 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 - Social history:: Smoking status: Patient/guardian denies using tobacco, Patient/guardian denies using alcohol, street drugs, IV drugs. - Ebola Screening: : No symptoms or risks identified at this time. ROS: 20:42 Constitutional: Negative for fever, chills, and weight loss, Eyes: Negative for injury, snw pain, redness, and discharge, ENT: Negative for injury, pain, and discharge, Neck: Negative for injury, pain, and swelling, Cardiovascular: Negative for chest pain, palpitations, and edema, Respiratory: Negative for shortness of breath, cough, wheezing, and pleuritic chest pain, Abdomen/GI: Negative for abdominal pain, nausea, vomiting, diarrhea, and constipation, Back: Negative for injury and pain, : Negative for injury, bleeding, discharge, and swelling, MS/Extremity: Negative for injury and deformity, Skin: Negative for injury, rash, and discoloration, Neuro: Negative for headache, weakness, numbness, tingling, and seizure. Exam: 20:42 Constitutional: This is a well developed, well nourished patient who is awake, alert, snw and in no acute distress. Head/Face: Normocephalic, atraumatic. Eyes: Pupils equal round and reactive to light, extra-ocular motions intact. Lids and lashes normal. Conjunctiva and sclera are non-icteric and not injected. Cornea within normal limits. Periorbital areas with no swelling, redness, or edema. ENT: Nares patent. No nasal discharge, no septal abnormalities noted. Tympanic membranes are normal and external auditory canals are clear. Oropharynx with no redness, swelling, or masses, exudates, or evidence of obstruction, uvula midline. Mucous membranes moist. Neck: Trachea midline, no thyromegaly or masses palpated, and no cervical lymphadenopathy. Supple, full range of motion without nuchal rigidity, or vertebral point tenderness. No Meningismus. Chest/axilla: Normal chest wall appearance and motion. Nontender with no deformity. No lesions are appreciated. Cardiovascular: Regular rate and rhythm with a normal S1 and S2. No gallops, murmurs, or rubs. Normal PMI, no JVD. No pulse deficits. Respiratory: Lungs have equal breath sounds bilaterally, clear to auscultation and percussion. No rales, rhonchi or wheezes noted. No increased work of breathing, no retractions or nasal flaring. Abdomen/GI: Soft, non-tender, with normal bowel sounds. No distension or tympany. No guarding or rebound. No evidence of tenderness throughout. Back: No spinal tenderness. No costovertebral tenderness. Full range of motion. Skin: Warm, dry with normal turgor. Normal color with no rashes, no lesions, and no evidence of cellulitis. MS/ Extremity: Pulses equal, no cyanosis. Neurovascular intact. Full, normal range of motion. Neuro: Awake and alert, GCS 15, oriented to person, place, time, and situation. Cranial nerves II-XII grossly intact. Motor strength 5/5 in all extremities. Sensory grossly intact. Cerebellar exam normal. Normal gait. Psych: Awake, alert, with orientation to person, place and time. Behavior, mood, and affect are within normal limits. Vital Signs: 20:29 BP 121 / 62; Pulse 73; Resp 20; Temp 99.0; Pulse Ox 99% ; Weight 92.99 kg; Height 5 ft. mg2 8 in. (172.72 cm); Pain 0/10; 21:49 BP 113 / 64; Pulse 70; Resp 18; Temp 99; Pulse Ox 100% on R/A; Pain 0/10; mg2 20:29 Body Mass Index 31.17 (92.99 kg, 172.72 cm) mg2 MDM: 20:22 Patient medically screened. [facility] 04/08 02:05 Data reviewed: vital signs, nurses notes. Data interpreted: Pulse oximetry: on room air snw is 100 %. Interpretation: normal. Counseling: I had a detailed discussion with the patient and/or guardian regarding: the historical points, exam findings, and any diagnostic results supporting the discharge/admit diagnosis, lab results, the need for outpatient follow up, for definitive care, to return to the emergency department if symptoms worsen or persist or if there are any questions or concerns that arise at home. Special discussion: Based on the history and exam findings, there is no indication for further emergent testing or inpatient evaluation. I discussed with the patient/guardian the need to see the OB Gyne specialist for further evaluation of the symptoms. 04/07 20:17 Order name: HCG-Quantitative; Complete Time: 21:50 snw Administered Medications: No medications were administered Disposition: 04/07/19 21:54 Discharged to Home. Impression: state. - Condition is Stable. - Discharge Instructions: First Trimester of . - Prescriptions for Vitamin 27- 0.8 mg Oral Tablet - take 1 tablet by ORAL route once daily; 60 tablet. - Medication Reconciliation Form, Thank You Letter, Antibiotic Education, Prescription Opioid Use form. - Follow up: Private Physician; When: 2 - 3 days; Reason: Recheck today's complaints, Continuance of care, Re-evaluation by your physician. Follow up: Emergency Department; When: As needed; Reason: Worsening of condition. Addendum: 04/09/2019 07:45 Co-signature as Attending Physician, Rakesh Calvillo MD I agree with the assessment and c lilly plan of care. Signatures: Dispatcher [employer] Rakesh Irby MD MD cha Therrien, Shelly, PROTECTIVE SERVICE SPECIALIST-C PROTECTIVE SERVICE SPECIALIST-Csnw Jayme Bedoya, RN RN mg2 Corrections: (The following items were deleted from the chart) 04/07 22:02 21:54 04/07/2019 21:54 Discharged to Home. Impression: state. Condition is mg2 Stable. Forms are Medication Reconciliation Form, Thank You Letter, Antibiotic Education, Prescription Opioid Use. Follow up: Private Physician; When: 2 - 3 days; Reason: Recheck today's complaints, Continuance of care, Re-evaluation by your physician. Follow up: Emergency Department; When: As needed; Reason: Worsening of condition. snw
--- NOTE | 2019-04-07 21:54 | ER ---
Nurse's Notes [facility] Name: Mar Dominique Age: 18 yrs Sex: Female : 2000 Arrival Date: 04/07/2019 Time: 20:09 Bed 23 Private MD: Diagnosis: state Presentation: 04/07 20:35 Presenting complaint: Patient states: i was here 2 weeks ago for vaginal bleeding and i mg2 am 5 weeks . i was not bleeding for the past 2 days but im here to check my HCG level as advised by ER provider before. Transition of care: patient was not received from another setting of care. Onset of symptoms was March 2019. Risk Assessment: Do you want to hurt yourself or someone else? Patient reports no desire to harm self or others. Initial Sepsis Screen: Does the patient meet any 2 criteria? No. Patient's initial sepsis screen is negative. Does the patient have a suspected source of infection? No. Patient's initial sepsis screen is negative. Care prior to arrival: None. 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 - Social history:: Smoking status: Patient/guardian denies using tobacco, Patient/guardian denies using alcohol, street drugs, IV drugs. - Ebola Screening: : No symptoms or risks identified at this time. Screenin:09 Abuse screen: Denies threats or abuse. Denies injuries from another. Nutritional mg2 screening: No deficits noted. Tuberculosis screening: No symptoms or risk factors identified. Fall Risk IV access (20 points). Assessment: 21:09 General: Appears in no apparent distress. comfortable, Behavior is calm, cooperative. mg2 Pain: Denies pain. Neuro: Level of Consciousness is awake, alert, obeys commands, Oriented to person, place, time, situation. Cardiovascular: Capillary refill < 3 seconds Patient's skin is warm and dry. Respiratory: Airway is patent Respiratory effort is even, unlabored, Respiratory pattern is regular, symmetrical. GI: Reports nausea, vomiting. : Urine is clear. EENT: No signs and/or symptoms were reported regarding the EENT system. Derm: Skin is intact, is healthy with good turgor, Skin is pink, warm \T\ dry. normal. Musculoskeletal: Circulation, motion, and sensation intact. Capillary refill < 3 seconds. Vital Signs: 20:29 BP 121 / 62; Pulse 73; Resp 20; Temp 99.0; Pulse Ox 99% ; Weight 92.99 kg; Height 5 ft. mg2 8 in. (172.72 cm); Pain 0/10; 21:49 BP 113 / 64; Pulse 70; Resp 18; Temp 99; Pulse Ox 100% on R/A; Pain 0/10; mg2 20:29 Body Mass Index 31.17 (92.99 kg, 172.72 cm) mg2 ED Course: 20:09 Patient arrived in ED. es 20:16 [facility]C [facility]. snw 20:16 Rakesh Calvillo MD is Attending Physician. snw 20:32 Jayme Bedoya, IGNACIO is Primary Nurse. mg2 20:37 Triage completed. mg2 21:02 No provider procedures requiring assistance completed. Initial lab(s) drawn, by ia, mg2 sent to lab. Patient did not have IV access during this emergency room visit. 21:09 Patient has correct armband on for positive identification. Pulse ox on. NIBP on. Door mg2 closed. Warm blanket given. 21:11 Arm band placed on. mg2 Administered Medications: No medications were administered Outcome: 21:54 Discharge ordered by . snw 22:02 Discharged to home ambulatory. mg2 22:02 Condition: stable 22:02 Discharge instructions given to patient, Instructed on discharge instructions, follow up and referral plans. medication usage, Demonstrated understanding of instructions, follow-up care, medications, Prescriptions given X 1. 22:02 Patient left the ED. mg2 Signatures: Darline Yoo FNP-C [employer] Nasreen Renner Jayme Bedoya, RN RN mg2 Dena Bourne lt1 Corrections: (The following items were deleted from the chart) 20:39 20:29 BP 121 / 62; Pulse 73bpm; Resp 20bpm; Pulse Ox 99%; Temp 99.0F; lt1 mg2
== END 2019-04-07 22:02 | disposition home or self-care (01) ==
LOC: ER 20:06
DX: Z34.01 Encounter for supervision of normal first pregnancy, first trimester (principal); Z3A.01 Less than 8 weeks gestation of pregnancy
CPT/HCPCS: 36415; 84702; 99283